=== PATIENT | female | born 1950 | race Caucasian/White ===

== ENCOUNTER 2020-08-05 18:20 | Emergency (ER) | payer MEDICARE ==
[2020-08-05] MEDS ORDERED: Ketorolac Tromethamine 30 MG/ML VIAL ONE (22:04)
== END 2020-08-05 22:50 | disposition home or self-care (01) ==
LOC: ERS 18:20
DX: M54.42 Lumbago with sciatica, left side (principal)
CPT/HCPCS: 96372; J1885

== ENCOUNTER 2022-06-22 06:57 | Outpatient (CLI) | payer MEDICARE ==
[2022-06-22 08:03] LABS: Anion Gap 13 mmol/L (10-20); BUN (Urea Nitrogen) 14 mg/dL (9.8-20.1); Calc. Creatinine Clearance 0 mL/min (70-130); Calcium 8.8 mg/dL (7.8-10.44); Carbon Dioxide 26 mmol/L (23-31); Chloride 102 mmol/L (98-107); Estimated GFR 91; Glucose 89 mg/dL (83-110); Hemoglobin 13.7 g/dL (12.0-15.5); Mean Corpuscular HGB CONC 33.1 g/dL (32.0-36.0); Mean Corpuscular Hemoglobin 31.3 pg (27.0-33.0); Mean Corpuscular Volume 94.5 fl (81.6-98.3); Mean Platelet Volume 9.6 fl (7.4-10.4); Platelet Count 212 10x3/uL (150-450); Potassium 4.4 mmol/L (3.5-5.1); RBC Distribution Width 13.4 % (11.5-14.5); Red Blood Cell (RBC) Count 4.38 10x6/uL (3.90-5.03); Sodium 137 mmol/L (136-145); White Blood Cell (WBC) Count 8.6 10x3/uL (3.5-10.5)
== END 2022-06-22 06:58 | disposition home or self-care (01) ==
LOC: LABBT 06:57
PROVIDERS: ATTEND Neurological Surgery
DX: Z01.818 Encounter for other preprocedural examination (principal); M54.16 Radiculopathy, lumbar region
CPT/HCPCS: 80048; 85027; 93005; 93010

== ENCOUNTER 2022-06-29 05:33 | Day surgery (SDC) | payer MEDICARE ==
[2022-06-25 13:29] VITALS: BMI 35.2
[2022-06-29] MEDS ORDERED: Vancomycin 1 GM VIAL ONE (06:27)
[2022-06-29] MEDS ORDERED: HYDROmorphone 0.5 MG/0.5 ML SYRINGE ONE (06:54)
[2022-06-29] MEDS ORDERED: fentaNYL PF 100 MCG/2 ML SYRINGE ONE (06:54)
[2022-06-29] MEDS ORDERED: MINERAL OIL/WHITE PETROLATUM 3.5 GM TUBE ONE (06:55)
[2022-06-29] MEDS ORDERED: SUGAMMADEX SODIUM 200 MG/2 ML VIAL ONE (06:55)
[2022-06-29] MEDS ORDERED: Sodium Chloride 0.9% 100 ML ONE (07:03)
[2022-06-29] MEDS ORDERED: CEFAZOLIN 2 GM VIAL ONE (07:03)
[2022-06-29] MEDS ORDERED: Ketorolac Tromethamine 30 MG/ML VIAL ONE (07:23)
[2022-06-29] MEDS ORDERED: PROPOFOL 200 MG/20 ML VIAL ONE (07:23)
[2022-06-29] MEDS ORDERED: Dexamethasone 20 MG/5 ML VIAL ONE (07:23)
[2022-06-29] MEDS ORDERED: Rocuronium Bromide 10 MG/ML (10ML VIAL) ONE (07:23)
[2022-06-29] MEDS ORDERED: Ondansetron PF 4 MG/2 ML Vial ONE (07:23)
[2022-06-29] MEDS ORDERED: Lidocaine 1% PF 5 ML VIAL ONE (07:23)
[2022-06-29] MEDS ORDERED: ePHEDrine 50 MG/ML VIAL ONE (07:23)
[2022-06-29] MEDS ORDERED: FENTANYL 50 MCG/ML 1 ML VIAL ONE ×2 (08:47→09:01)
== END 2022-06-29 11:50 | disposition home or self-care (01) ==
LOC: SDC 05:33
PROVIDERS: ATTEND Neurological Surgery
PROC: 0SG0071 Fusion of Lumbar Vertebral Joint with Autologous Tissue Substitute, Posterior Approach, Posterior Column, Open Approach (ICD-10-PCS; principal; 2022-06-29)
DX: M54.16 Radiculopathy, lumbar region (principal); M48.061 Spinal stenosis, lumbar region without neurogenic claudication; Z79.890 Hormone replacement therapy; Z79.899 Other long term (current) drug therapy
CPT/HCPCS: 20930; 20936; 22612; 22840; 63047; C1713 ×3; C1768; C1776; J3010; J1100; J1170; J1885; J2405; J2704; J3370; J3490

== ENCOUNTER 2022-07-22 09:17 | Outpatient (CLI) | payer MEDICARE | END 2022-07-22 09:18 | disposition home or self-care (01) | LOC: TBSIIMAG 09:17 | PROVIDERS: ATTEND Neurological Surgery | DX: M47.26 Other spondylosis with radiculopathy, lumbar region (principal); R29.890 Loss of height; M46.06 Spinal enthesopathy, lumbar region; Z98.890 Other specified postprocedural states | CPT/HCPCS: 72100 ==

== ENCOUNTER 2022-08-27 13:35 | Outpatient (CLI) | payer MEDICARE | END 2022-08-27 13:36 | disposition home or self-care (01) | LOC: TBSIIMAG 13:35 | PROVIDERS: ATTEND Neurological Surgery | DX: M54.16 Radiculopathy, lumbar region (principal); M43.16 Spondylolisthesis, lumbar region; Z98.890 Other specified postprocedural states | CPT/HCPCS: 72100 ==